=== PATIENT | male | born 1960 | race Caucasian/White ===

== ENCOUNTER → 2020-02-11 | Outpatient (CLI) | payer BC ==
--- NOTE | 2020-02-11 08:10 | CT ---
EXAMINATION TYPE: CT chest w con DATE OF EXAM: 02/11/2020 COMPARISON: Patient's abnormal chest x-ray is not available for correlation. HISTORY: 59 year-old male abnormal CXR, hilar adenopathy TECHNIQUE: Contiguous axial scanning of the chest after the administration of 100 mL of Isovue 300. Coronal/sagittal reconstructions performed. CT DLP: 479mGycm. Automatic exposure control utilized for a dose reduction. FINDINGS: Heart upper limits of normal in size without pericardial effusion. Some scattered, RCA, and LAD coron [place] artery calcifications. Mildly aneurysmal aortic root at 4.0 cm. Ascending aorta aneurysmal 4.6 cm. Conventional branching an atomy. Ectatic upper descending thoracic aorta at 3.1 cm. No thoracic lymphadenopathy by CT size criteria. No abnormal enlargement of the main right or left pu lmonary arteries. Strandy and hazy areas of atelectasis in the lower lungs. No consolidation or pleural effusion. Visualized upper abdomen shows fullness in the region of the left renal collecting system, either mil d hydronephrosis or underlying parapelvic cysts. Bones: Cervical spondylosis. Anterior endplate spondylosis lower thoracic spine. IMPRESSION: 1. No abnormal thoracic lymphadenopathy. 2. Mildly aneurysmal aortic root at 4.0 cm and additional aneurysm of the ascending aorta at 4.6 cm. 3. Some scattered areas of atelectasis in the lower lungs without acute pulmonary process otherwise s een. 4. Fullness in the region of the left renal collecting system, partially visualized. Either mild hydr onephrosis or underlying parapelvic cysts. Clinically correlate.
== END | disposition home or self-care (01) ==
LOC: RADCTMAIN 07:33
DX: I71.2 Thoracic aortic aneurysm, without rupture (principal); J98.11 Atelectasis
CPT/HCPCS: 71260; Q9967

== ENCOUNTER 2020-02-25 09:28 | Day surgery (SDC) | payer BC ==
[2020-02-21 17:08] VITALS: BMI 31.1
[~2020-02-25 09:28] MED LIST: LACTATED RINGERS 1,000 ML IV SCH
[2020-02-25 09:52] VITALS: TEMP 98.4
[2020-02-25] MEDS ORDERED: PROPOFOL 10 MG/ML 20 ML VIAL IV ONE (10:20)
[2020-02-25] MEDS ORDERED: LIDOCAINE 1% INJ 10MG/ML (20 ML MDV) ONE (10:20)
--- NOTE | 2020-02-25 10:40 | P.PCN ---
Date of Procedure: 02/25/20 Description of Procedure: BRIEF HISTORY: Patient is a 59-year-old male presenting for outpatient colonoscopy for screening for malignant neoplasm of the colon. No family history of colon cancer. No change in bowel habits. No prior colonoscopy. PROCEDURE PERFORMED: Colonoscopy. PREOPERATIVE DIAGNOSIS: Screening for malignant neoplasm of the colon, no prior colonoscopy reported. ESTIMATED BLOOD LOSS: Minimal. IV sedation per Anesthesia. PROCEDURE: After informed consent was obtained, the patient, was brought into the endoscopy unit. IV sedation was administered by Anesthesia under continuous monitoring. Digital rectal examination was normal. Initially the Olympus CF-190 flexible video colonoscope was then inserted in the rectum, gradually advanced into the cecum without any difficulty. Careful examination was performed as the scope was gradually being withdrawn. Ileocecal valve and the appendiceal orifice were visualized and appeared normal. Prep was excellent. Mucosa of the cecum, ascending colon, transverse colon, descending colon, sigmoid colon, and rectum appeared normal. Multiple small and large mouth diverticula in the sigmoid colon. Retroflexion was performed in the rectum and no lesions were seen, low- grade internal hemorrhoids. The patient tolerated the procedure well. IMPRESSION: Normal-appearing colon from rectum to cecum. Mild sigmoid diverticulosis. RECOMMENDATIONS: Findings of this examination were discussed with the patient and his . Okay to resume diet. Okay to resume medications. Recommend repeat colonoscopy in 10 years for screening for malignant neoplasm of the colon, or sooner if any signs or symptoms which warrant further evaluation develop.
[2020-02-25 10:48] VITALS: RESP 16
[2020-02-25 10:59] VITALS: BP 149/90; PULSE 60
== END 2020-02-25 11:17 | disposition home or self-care (01) ==
LOC: ORWHC2ENDO 09:28
PROVIDERS: ATTEND Internal Medicine
DX: Z12.11 Encounter for screening for malignant neoplasm of colon (principal); K57.30 Diverticulosis of large intestine without perforation or abscess without bleeding; K64.8 Other hemorrhoids; I10 Essential (primary) hypertension; K21.9 Gastro-esophageal reflux disease without esophagitis; Z79.899 Other long term (current) drug therapy
CPT/HCPCS: J2001; J2704; G0121

== ENCOUNTER 2020-03-27 07:46 | Day surgery (SDC) | payer BC ==
[2020-03-26 10:48] VITALS: BMI 30.5
[2020-03-27 08:05] VITALS: RESP 16; TEMP 97.2
[2020-03-27] MEDS ORDERED: LACTATED RINGERS 1,000 ML IV ONE (08:14)
[2020-03-27] MEDS ORDERED: LIDOCAINE 1% INJ 10MG/ML (20 ML MDV) ONE (08:58)
[2020-03-27] MEDS ORDERED: PROPOFOL 10 MG/ML 20 ML VIAL IV ONE (08:58)
--- NOTE | 2020-03-27 09:16 | P.PCN ---
Date of Procedure: 03/27/20 Description of Procedure: BRIEF HISTORY: Patient is a 59-year-old male presenting for outpatient esophagogastroduodenoscopy for evaluation of epigastric abdominal pain. Patient has a history of GERD on omeprazole therapy. He also reports dry cough and epigastric burning pain. Symptoms improved on PPI therapy. PROCEDURE PERFORMED: Esophagogastroduodenoscopy with biopsy. PREOPERATIVE DIAGNOSIS: Epigastric abdominal pain, GERD. ESTIMATED BLOOD LOSS: Minimal. IV sedation per anesthesia. PROCEDURE: After informed consent was obtained, the patient was brought into the endoscopy unit. IV sedation was administered by Anesthesia under continuous monitoring. Initially the Olympus GIF-190 video endoscope was inserted into the mouth. Esophagus intubated without any difficulty. It was gradually advanced into the stomach and duodenum and carefully examined. The bulb and the second part of the duodenum appeared normal, with biopsies taken to rule out celiac sprue. The scope at this time was withdrawn to the stomach, adequately insufflated with air, and upon careful examination, mucosa of the antrum, body, cardia and the fundus appeared normal, except for some mild punctate erythema in the antrum and body suggestive of mild gastritis biopsies taken. The scope was then withdrawn into the esophagus. The GE junction was located at 43 cm from the incisors and biopsied. The esophagus appeared normal. There were no erosions or ulcerations seen and the patient tolerated the procedure well. IMPRESSION: 1. Mild gastritis. 2.. Biopsies of the duodenum, antrum body and GE junction. RECOMMENDATIONS: The findings of this examination were discussed with the patient and his family. Okay to resume diet. Okay to resume medications. Continue omeprazole therapy. Await pathology from biopsies.
[2020-03-27 09:36] VITALS: BP 160/91; PULSE 53
== END 2020-03-27 10:00 | disposition home or self-care (01) ==
LOC: ORWHC2ENDO 07:46
PROVIDERS: ATTEND Internal Medicine
DX: K21.00 Gastro-esophageal reflux disease with esophagitis, without bleeding (principal); K29.70 Gastritis, unspecified, without bleeding; I10 Essential (primary) hypertension; Z79.899 Other long term (current) drug therapy; Z79.1 Long term (current) use of non-steroidal anti-inflammatories (NSAID); Z98.890 Other specified postprocedural states; Z87.19 Personal history of other diseases of the digestive system
CPT/HCPCS: 88305; 43239; J2001; J2704

== ENCOUNTER → 2020-04-17 | Outpatient (CLI) | payer BC ==
--- NOTE | 2020-04-17 18:52 | ECHOF ---
Referral Reason:Q23 bicuspid AV MEASUREMENTS -------- HEIGHT: 180.3 cm WEIGHT: 98.9 kg BP: IVSd: 1.7 cm (0.6 - 1.1) LVIDd: 4.4 cm (3.9 - 5.3) LVPWd: 1.7 cm (0.6 - 1.1) IVSs: 2.1 cm LVIDs: 2.4 cm LVPWs: 2.4 cm RVIDd: 3.9 cm (< 3.3) LAESV Index (A-L): 26.36 ml/m Ao Diam: 3.6 cm (2.0 - 3.7) AV Cusp: 2.3 cm (1.5 - 2.6) EPSS: 0.5 cm MV E Pio: 0.56 m/s MV DecT: 284 ms MV A Pio: 0.51 m/s MV E/A Ratio: 1.08 AR PHT: 566 ms RAP: 5.00 mmHg RVSP: 15.17 mmHg MV EF SLOPE: 90.27 mm/s (70 - 150) MV EXCURSION: 20.13 mm (> 18.000) FINDINGS -------- Sinus rhythm. This was a technically adequate study. The left ventricular size is normal. There is moderate concentric left ventricular hypertrophy. O verall left ventricular systolic function is normal with, an EF between 55 - 60 %. The right ventricle is moderately enlarged. Normal LA size by volume 22+/-6 ml/m2. The right atrial size is normal. Interatrial and interventricular septum intact. There is moderate aortic regurgitation. There is no evidence of aortic stenosis. Mild mitral regurgitation is present. Mild tricuspid regurgitation present. There is no evidence of pulmonary hypertension. The right v entricular systolic pressure, as measured by Doppler, is 15.17mmHg. There is no pulmonic regurgitation present. The aortic root and ascending aorta are dilated measuring up to 4 cm. IVC Not well visulized. There is no pericardial effusion. CONCLUSIONS -------- 1. The left ventricular size is normal. 2. There is moderate concentric left ventricular hypertrophy. 3. Overall left ventricular systolic function is normal with, an EF between 55 - 60 %. 4. The right ventricle is moderately enlarged. 5. There is moderate aortic regurgitation. 6. Mild mitral regurgitation is present. 7. Mild tricuspid regurgitation present. 8. The aortic root and ascending aorta are dilated measuring up to 4 cm. [employer]: Jeannie Love RDCS
== END | disposition home or self-care (01) ==
LOC: RADECHMAIN 10:41
PROVIDERS: ATTEND Surgery
DX: I08.3 Combined rheumatic disorders of mitral, aortic and tricuspid valves (principal); I77.810 Thoracic aortic ectasia; Z86.79 Personal history of other diseases of the circulatory system
CPT/HCPCS: 93306

== ENCOUNTER → 2020-08-11 | Outpatient (CLI) | payer BC ==
--- NOTE | 2020-08-11 11:13 | CT ---
EXAMINATION TYPE: CT angio chest DATE OF EXAM: 08/11/2020 10:44 AM COMPARISON: CT chest February 11, 2020 HISTORY: thoracic aneurysm CT DLP: 788.3 mGycm Automated exposure control for dose reduction was used. CONTRAST: CTA scan of the thorax is performed without and with IV Contrast, patient injected with 100 mL of Iso malik 370, aneurysm protocol. 3D reconstructed images are created on an independent workstation and re viewed.. FINDINGS: LUNGS: Elevated left hemidiaphragm redemonstrated. Lungs remain predominantly clear. No new consolida tion. No new nodules or masses. No pleural effusion or pneumothorax seen. MEDIASTINUM: Heart size remains upper limits of normal. No pericardial effusion is seen. Persistent early moderate calcification and suspected leaflet thickening at level of aortic valve. There is rede monstration of ascending aortic aneurysm up to 4.5 cm in diameter similar to prior study. Aortic root measures closer to 4.0 cm similar to prior. No aneurysm extension into the arch or descending aorta. Normal three-vessel origin without significant plaque or stenosis. No new greater than 1 cm thoracic lymph nodes. OTHER: Persistent fullness left central kidney consistent with parapelvic cysts or left-sided hydron ephrosis, former is suspected. Moderate multilevel spurring in the mid to lower thoracic spine is red emonstrated. IMPRESSION: Stable ascending aortic aneurysm up to 4.5 cm, no significant interval progression.
== END | disposition home or self-care (01) ==
LOC: RADCTMAIN 09:27
PROVIDERS: ATTEND Surgery
DX: I71.2 Thoracic aortic aneurysm, without rupture (principal)
CPT/HCPCS: 71275; Q9967

== ENCOUNTER → 2021-08-10 | Outpatient (CLI) | payer BC ==
--- NOTE | 2021-08-10 13:46 | CT ---
EXAMINATION TYPE: CT angio chest DATE OF EXAM: 08/10/2021 1:37 PM COMPARISON: 08/11/2020 HISTORY: Thoracic Aortic Aneurysm CT DLP: 837.20 mGycm Automated exposure control for dose reduction was used. CONTRAST: CTA scan of the thorax is performed without and with IV Contrast, patient injected with 100 mL of Iso malik 370, pulmonary embolism protocol. . FINDINGS: LUNGS: The lungs are grossly clear, there is no concerning parenchymal mass or nodule identified. T here is no pleural effusion or pneumothorax seen. The tracheobronchial tree is patent. MEDIASTINUM: Heart size mildly enlarged and there is coronary artery calcifications. No pericardial e ffusion is seen. Persistent early moderate calcification and suspected leaflet thickening at level of aortic valve. There is redemonstration of ascending aortic aneurysm up to 4.6 cm in diameter similar to prior study measured 4.5 cm. Normal three-vessel origin without significant plaque or stenosis. No new greater than 1 cm thoracic lymph nodes. Subsegmental changes involving the lungs most likely in the basis of atelectasis. OTHER: Persistent fullness left central kidney consistent with parapelvic cysts or left-sided hydron ephrosis, former is suspected. Moderate multilevel spurring in the mid to lower thoracic spine is red emonstrated. IMPRESSION: 1. Thoracic ascending aortic aneurysm measuring approximately 4.6 cm and previously measuring 4.5 cm in greatest dimension. 2. Cardiomegaly with coronary artery atherosclerosis, correlate clinically.
[2021-08-10 13:56] LABS: African American GFR (CKD) >90 (>60 ml/min/1.73 sqM); Blood Urea Nitrogen 22 mg/dL (9-20); Non-African American GFR(CKD) >90 (>60 ml/min/1.73 sqM)
== END | disposition home or self-care (01) ==
LOC: RADCTMAIN 08:29
PROVIDERS: ATTEND Surgery
DX: I71.2 Thoracic aortic aneurysm, without rupture (principal); I25.10 Atherosclerotic heart disease of native coronary artery without angina pectoris; I51.7 Cardiomegaly
CPT/HCPCS: 82565; 84520; 71275; 36415; Q9967

== ENCOUNTER → 2021-08-31 | Outpatient (CLI) | payer BC ==
[2021-08-31 22:45] LABS: African American GFR (CKD) 95.7 (60.0-200.0); Anion Gap 10.8 mmol/L (10.00-18.00); Carbon Dioxide 22.2 mmol/L (20.0-27.5); Non-African American GFR(CKD) 82.6 (60.0-200.0)
[2021-08-31 22:58] LABS: HCT 37.3 % (39.6-50.0); HGB 12.8 g/dL (13.0-17.0); MCH 31.6 pg (27.0-32.0); MCHC 34.3 g/dL (32.0-37.0); MCV 92.1 fL (80.0-97.0); NRBC Per 100 WBC 0 /100 WBCS (0.0-0.0); Platelet Count 149 X 10*3/uL (140-440); RBC 4.05 X 10*6/uL (4.40-5.60); RDW 12.4 % (11.5-14.5); WBC 3.81 X 10*3/uL (4.50-10.00)
== END | disposition home or self-care (01) ==
LOC: LABPAT 15:55
PROVIDERS: ATTEND Internal Medicine
DX: Z01.812 Encounter for preprocedural laboratory examination (principal); I34.0 Nonrheumatic mitral (valve) insufficiency
CPT/HCPCS: 36415; 80051; 82565; 84520; 85027

== ENCOUNTER 2021-09-07 06:19 | Day surgery (SDC) | payer BC ==
[~2021-09-07 06:19] MED LIST changes: +ALPRAZolam 0.25 MG TAB PO PRN; +ALPRAZolam 0.5 MG TAB PO PRN; +ASPIRIN 325 MG TAB PO STA; +ATORVASTATIN 80 MG TAB PO STA; +HEPARIN SODIUM,PORCINE 10,000 UNIT in SODIUM CHLORIDE 0.9% 1,000 ML IRRIGATION PRN; +HEPARIN SODIUM,PORCINE 2,500 UNIT in SODIUM CHLORIDE 0.9% 250 ML IRRIGATION PRN; -LACTATED RINGERS 1,000 ML IV SCH; +NITROGLYCERIN SL TABS 0.4 MG TAB SUBLINGUAL PRN; +SODIUM CHLORIDE 0.9% 1,000 ML in EMPTY BAG 1 BAG IV SCH
[2021-09-07 06:59] VITALS: RESP 16; TEMP 98.8
[2021-09-07] MEDS ORDERED: fentaNYL (PF) 50 MCG/ML 2 ML AMP ONE (07:17)
[2021-09-07] MEDS ORDERED: BENZOCAINE SPRAY 1 CAN MUCOUS MEM ONE (07:32)
[2021-09-07] MEDS ORDERED: fentaNYL (PF) 50 MCG/ML 2 ML AMP IV ONE ×2 (07:35→07:39)
[2021-09-07] MEDS ORDERED: MIDAZOLAM 2 MG/2 ML VIAL IV ONE ×3 (07:35→07:41)
[2021-09-07] MEDS ORDERED: IV FLUID CONTINUATION 700 ML IV ONE (08:05)
[2021-09-07] MEDS: LIDOCAINE 1% INJ 10MG/ML (5 ML VIAL-PF) SQ ONE ×2 (08:12→08:20)
[2021-09-07] MEDS ORDERED: LIDOCAINE 1% INJ 10MG/ML (5 ML VIAL-PF) SQ ONE (08:12)
[2021-09-07] MEDS ORDERED: HEPARIN SODIUM 1,000 UN/ML (10ML VL) ONE (08:31)
[2021-09-07] MEDS ORDERED: HEPARIN SODIUM 1,000 UN/ML (10ML VL) IVP ONE (08:32)
[2021-09-07] MEDS ORDERED: IOPAMIDOL-370 100ML BTL INJ ONE (08:42)
[2021-09-07] MEDS ORDERED: IOPAMIDOL-370 125ML BTL INJ ONE (08:48)
[2021-09-07 08:49] LABS: O2 Sat Blood Gas 73.3 %
[2021-09-07 08:50] LABS: O2 Sat Blood Gas 71.6 %
[2021-09-07 08:50] LABS: O2 Sat Blood Gas 96.8 %
--- NOTE | 2021-09-07 09:02 | P.TEE ---
Description of Procedure(s): Procedure performed: Transesophageal Echocardiogram with color flow doppler, pulsed wave doppler and continuous wave doppler, moderate conscious sedation Moderate conscious sedation: Moderate conscious sedation was supplied with direct supervision of myself using Versed and Fentanyl. Complications: none Indications: Moderate to severe aortic insufficiency PROCEDURE: After the risks, benefits and alternatives of the above mentioned procedure was explained in detail with the patient, informed consent was obtained. Patient was brought to the lab in a fasting state. Patient was given IV Versed and Fentanyl for sedation. The throat was sprayed with Hurricane to anesthetize the throat. A lubricated Omni probe was then introduced into the esophagus and stomach and multiple views were obtained. 2D echo with color flow doppler, pulsed wave doppler and continuous wave doppler was utilized. Agitated saline bubbles were injected to assess for any intra-atrial shunt. The probe was then removed. Patient tolerated the procedure well. Patient was transferred to the post procedure area in stable and satisfactory condition. FINDINGS: 1. The aortic valve is bicuspid with mild aortic sclerosis and mild aortic stenosis. There is moderate to severe aortic insufficiency. There is only early diastolic flow reversal noted in the descending, no holosystolic flow reversal noted more consistent with moderate aortic insufficiency. 2. The mitral valve appears be normal with mild mitral regurgitation. 3. Tricuspid valve appears to be normal with trace tricuspid regurgitation. 4. The interatrial septum is intact. No evidence of PFO. 5. Left atrial appendage is free of clot. 6. Left ventricular size and function is normal with left ventricular ejection fraction 55-60%. 7. The ascending aortic root is dilated measuring 4.4 cm.
[2021-09-07 12:39] VITALS: BP 142/78
[2021-09-07 13:02] VITALS: PULSE 55
--- NOTE | 2021-09-07 22:04 | P.CARDCATH ---
Description of Procedure: PROCEDURES PERFORMED: Left heart catheterization, bilateral coronary angiography, right heart catheterization, aortogram INDICATION: Moderate to severe aortic insufficiency CONSENT:I have discussed the risks, benefits and alternative therapies for the above-mentioned procedure and for both sedation/analgesia as well as necessary blood product administration, if indicated, as they pertain to this patient. The patient has indicated understanding and acceptance of the risks and procedures discussed. PROCEDURE: After the risks, benefits and alternatives of the above mentioned procedure explained in detail with the patient, informed consent was obtained. Patient was taken to the catheterization lab and prepped and draped in usual fashion. 1% lidocaine was used to anesthetize the right radial artery. A 6- [place] sheath was placed in the right radial artery using modified Seldinger technique. A peripheral 18G IV had previously been placed in the right brachial vein and this was exchanged for a 6Fr sheath. A 6Fr Morris Nawaf catheter was advanced into the RA, RV, PA and PCWP positions and pressure measurements and pulse oxygen saturations were obtained for JOSE calculation. Thermodilution was performed. The Morris Nawaf catheter was removed. Left coronary angiography was performed with a 5-Icelandic JL 4.0 catheter and right coronary angiography was performed with a 6-Icelandic AR2 catheter in various views. The AR2 catheter was inserted into the left ventricle and pressure measurements were obtained. There was no signficant gradient with pullback across the aortic valve. An aortic root aortogram was performed in the HAYES projection with power injection. The right radial sheath was removed and a TR band was placed with hemostasis achieved. The right brachial sheath was removed and pressure was held. The patient tolerated the procedure well. Patient was transported back to the post catheterization holding area in stable condition. Conscious Sedation: Patient was monitored under the direct supervision of vision of myself for conscious sedation using Versed and fentanyl for a total duration of 31 minutes RIGHT HEART CATHETERIZATION: Aorta: 117/65 LV: 118/6, LVEDP 13 RA: 6 RV: 30/1 RVEDP:8 PA: 30/10 PCWP: 11 PA oxygen sat: 73% RA oxygen sat: 72% Right radial oxygen sat: 97% CO by JOSE: 3.6 L/min CI by JOSE: 3.3 L/min/m2 CO by thermodilution: 8.5 CI by thermodilution: 7.8 AORTOGRAM: There is dilation of the ascending aortic root. There is 2-3+ aortic insufficiency. SELECTIVE CORONARY ARTERIOGRAPHY: LEFT MAIN: The left main is a large caliber vessel which bifurcates into the LAD and circumflex. There is no significant stenosis. LEFT ANTERIOR DESCENDING CORONARY ARTERY: LAD is a large caliber vessel which wraps around to the apex. There are mild luminal irregularities of the LAD. LEFT CIRCUMFLEX CORONARY ARTERY: Left circumflex is a moderate caliber vessel. There is a mid circumflex 30% stenosis. RIGHT CORONARY ARTERY: The right coronary artery is a large caliber vessel which gives off a PDA and PLV branch and is the dominant vessel. There are mild luminal irregularities. FINAL IMPRESSION: 1. Mild CAD as described above including 30% mid circumflex disease 2. Normal left and right sided filling pressures 3. 2-3+ moderate aortic insufficiency 4. Normal cardiac output 5. Aortic root dilation PLAN: 1. Aggressive risk factor modification per most recent ACC/AHA guidelines. 2. Continue with medical therapy.
== END 2021-09-07 13:02 | disposition home or self-care (01) ==
LOC: CATHCVL 06:19
PROVIDERS: ATTEND Internal Medicine
DX: I08.0 Rheumatic disorders of both mitral and aortic valves (principal); I25.10 Atherosclerotic heart disease of native coronary artery without angina pectoris; I10 Essential (primary) hypertension; I71.2 Thoracic aortic aneurysm, without rupture; K21.9 Gastro-esophageal reflux disease without esophagitis; Z79.899 Other long term (current) drug therapy; Z20.822 Contact with and (suspected) exposure to COVID-19
CPT/HCPCS: 93312; 93320; 93325; 93460; 85018; 82810; 87635; C1894; C1751; C1769; J2250; J2001; J3010; J1644; Q9967 ×2

== ENCOUNTER → 2022-01-07 | Outpatient (CLI) | payer BC ==
[2022-01-07 14:32] LABS: Basophils # (A) 0.02 X 10*3/uL (0.00-0.10); Basophils % (A) 0.4 %; Eosinophils # (A) 0.08 X 10*3/uL (0.04-0.35); Eosinophils % (A) 1.6 %; HCT 41.1 % (39.6-50.0); HGB 14.2 g/dL (13.0-17.0); Immature Grans, Automated 0.4 %; Lymphocytes # (A) 1.08 X 10*3/uL (0.90-5.00); Lymphocytes % (A) 21.6 %; MCH 30.9 pg (27.0-32.0); MCHC 34.5 g/dL (32.0-37.0); MCV 89.3 fL (80.0-97.0); Mean Platelet Volume 9.2 fL (9.5-12.2); Monocytes # (A) 0.42 X 10*3/uL (0.20-1.00); Monocytes % (A) 8.4 %; NRBC Per 100 WBC 0 /100 WBCS (0.0-0.0); Neutrophils # (A) 3.37 X 10*3/uL (1.80-7.70); Neutrophils % (A) 67.6 %; Platelet Count 155 X 10*3/uL (140-440); RDW 12.4 % (11.5-14.5); WBC 4.99 X 10*3/uL (4.50-10.00)
[2022-01-07 16:13] LABS: ALT 16 U/L (10-49); AST 16 U/L (14-35)
[2022-01-07 16:29] LABS: Hepatitis B Surface AB- Quant 3.5 mIU/mL; Hepatitis B Surface Antibody Nonreactive (Nonreactive)
[2022-01-07 16:39] LABS: Hepatitis B Surface Antigen Nonreactive (Nonreactive); Hepatitis C IgG Antibody Nonreactive (Nonreactive)
== END | disposition home or self-care (01) ==
LOC: LABWHC1 10:13
PROVIDERS: ATTEND Student in an Organized Health Care Education/Training Program
DX: L30.8 Other specified dermatitis (principal); L53.8 Other specified erythematous conditions
CPT/HCPCS: 36415; 84450; 84460; 85025; 86225; 86235; 86480; 86704; 86706; 86803; 87340

== ENCOUNTER → 2022-04-23 | Outpatient (CLI) | payer BC ==
[2022-04-23 17:45] LABS: Basophils # (A) 0.03 X 10*3/uL (0.00-0.10); Basophils % (A) 0.8 %; Eosinophils % (A) 2.6 %; HCT 42.5 % (39.6-50.0); HGB 14.5 g/dL (13.0-17.0); Immature Grans, Automated 0.3 %; Lymphocytes # (A) 0.75 X 10*3/uL (0.90-5.00); Lymphocytes % (A) 19.1 %; MCH 31.3 pg (27.0-32.0); MCHC 34.1 g/dL (32.0-37.0); MCV 91.6 fL (80.0-97.0); Mean Platelet Volume 9.6 fL (9.5-12.2); Monocytes % (A) 10.2 %; NRBC Per 100 WBC 0 /100 WBCS (0.0-0.0); Neutrophils # (A) 2.63 X 10*3/uL (1.80-7.70); Platelet Count 154 X 10*3/uL (140-440); RBC 4.64 X 10*6/uL (4.40-5.60); RDW 12.9 % (11.5-14.5); WBC 3.92 X 10*3/uL (4.50-10.00)
[2022-04-23 18:02] LABS: ALT 22 U/L (10-49); AST 19 U/L (14-35); African American GFR (CKD) 95.1 (60.0-200.0); Albumin 4.7 g/dL (3.8-4.9); Albumin/Globulin Ratio 2.61 (1.60-3.17); Alkaline Phosphatase 85 U/L (41-126); Calcium 9.4 mg/dL (8.7-10.3); Carbon Dioxide 24.3 mmol/L (20.0-27.5); Chloride 105 mmol/L (96-109); Chol/HDL Ratio 5.62 Ratio; Globulin 1.8 g/dL (1.6-3.3); Glucose 113 mg/dL (70-110); LDL Cholesterol,Calculated 164.2 mg/dL (0.0-131.0); Potassium 4.3 mmol/L (3.5-5.5); Sodium 141 mmol/L (135-145); Total Protein 6.5 g/dL (6.2-8.2)
== END | disposition home or self-care (01) ==
LOC: LABWHC1 09:46
PROVIDERS: ATTEND Family Medicine
DX: Z00.00 Encounter for general adult medical examination without abnormal findings (principal); Z12.5 Encounter for screening for malignant neoplasm of prostate; I42.9 Cardiomyopathy, unspecified
CPT/HCPCS: 36415; 80053; 80061; 83036; 83880; 84153; 84443; 85025

== ENCOUNTER → 2022-08-16 | Outpatient (CLI) | payer BC ==
--- NOTE | 2022-08-16 08:22 | CT ---
EXAMINATION TYPE: CT chest wo con CT DLP: 696 mGycm, Automated exposure control for dose reduction was used. DATE OF EXAM: 08/16/2022 6:53 AM COMPARISON: CTA chest 08/10/2021, 08/11/2020, CT chest 02/11/2020. CLINICAL INDICATION:Male, 61 years old with history of I71.20; PHH, Thoracic aortic aneurysm, without rupture TECHNIQUE: Multiple axial images were obtained through the chest without IV contrast. Lack of IV or o ral contrast limits evaluation of solid and hollow organ viscera. FINDINGS: Evaluation is limited due to lack of intravenous contrast. LUNGS/ PLEURA: The lung parenchyma appears unremarkable. AIRWAY: Patent and unremarkable.. HEART: Size within normal limits. No pericardial effusion. Mild coronary artery calcifications. Calci fication of the aortic valve. MEDIASTINUM: No gross evidence of adenopathy. VASCULATURE: Increased size of ascending thoracic aortic aneurysm measuring up to 4.7 cm, previously measured up to 4.6 cm when measuring with similar technique. MUSCULOSKELETAL: No acute osseous abnormalities. Multilevel Schmorl's nodes. SOFT TISSUES/LYMPH NODES: Unremarkable. LOWER NECK: No significant findings. UPPER ABDOMEN: 2 mm left renal calculus. Similar persistent fullness of the left central kidney. IMPRESSION: 1. Thoracic ascending aortic aneurysm redemonstrated measuring approximate 4.7 cm, previously 4.6 cm when measuring with similar technique. 2. Similar persistent fullness of the left central kidney with a 2 mm calculus. This could be seen wi th parapelvic cysts or left-sided hydronephrosis. Consider further evaluation with renal ultrasound a s clinically indicated.
== END | disposition home or self-care (01) ==
LOC: RADCTMAIN 06:28
PROVIDERS: ATTEND Surgery
DX: I71.21 Aneurysm of the ascending aorta, without rupture (principal); N20.0 Calculus of kidney
CPT/HCPCS: 71250

== ENCOUNTER 2022-08-19 02:56 | Emergency (ER) | payer BC ==
[2022-08-19] MEDS ORDERED: ONDANSETRON 4 MG/2 ML VIAL IVP STA (03:10)
[2022-08-19] MEDS ORDERED: MORPHINE SULFATE 4 MG/ML SYRINGE IV STA (03:10)
[2022-08-19] MEDS ORDERED: SODIUM CHLORIDE 0.9% 1,000 ML IV STA (03:10)
--- NOTE | 2022-08-19 03:19 | ED ---
General Adult HPI - General Chief complaint: Abdominal Pain Stated complaint: Back pain, Abd Pain Time Seen by Provider: 08/19/22 03:06 Source: patient, family Mode of arrival: ambulatory Limitations: no limitations - History of Present Illness Initial comments: Dictation was produced using [employer] dictation software. please excuse any grammatical, word or spelling errors. Chief Complaint: 61-year-old male with past medical history of thoracic aortic aneurysm presents to the ER for flank pain History of Present Illness: Patient's 61-year-old male presents with left-sided flank pain. Patient states he went to bed in his usual state of health. He woke up with severe pain. Associated nausea. No vomiting. No history of kidney stones. Patient denies any abdominal pain states that the pain radiates to his bilateral groins. He did urinate prior to being placed in the room and his urine was cola color. States that because he had some pop last night. She states that the pain is severe and is colicky The ROS documented in this emergency department record has been reviewed and confirmed by me. Those systems with pertinent positive or negative responses have been documented in the HPI. All other systems are other negative and/or noncontributory. - Related Data Home Medications Medication Instructions Recorded Confirmed Omeprazole [PriLOSEC] 40 mg PO DAILY 02/21/20 09/07/21 Acetaminophen [Tylenol] 325 mg PO Q4H 09/03/21 09/07/21 Labetalol HCl [Trandate] 300 mg PO BID 09/03/21 09/07/21 Aspirin [Adult Low Dose Aspirin EC] 81 mg PO DIRECTED PRN 09/07/21 09/07/21 Allergies Allergy/AdvReac Type Severity Reaction Status Date / Time No Known Allergies Allergy Verified 08/19/22 03:03 Review of Systems ROS Statement: Those systems with pertinent positive or pertinent negative responses have been documented in the HPI. ROS Other: All systems not noted in ROS Statement are negative. Past Medical History Past Medical History: GERD/Reflux, Hypertension History of Any Multi-Drug Resistant Organisms: None Reported Past Surgical History: Back Surgery, Hernia Repair Additional Past Surgical History / Comment(s): Back surg 2007. COLONOSCOPY Past Anesthesia/Blood Transfusion Reactions: No Reported Reaction Past Psychological History: No Psychological Hx Reported Smoking Status: Never smoker Past Alcohol Use History: None Reported Past Drug Use History: None Reported - Past Family History Brother(s) Family Medical History: Cancer Additional Family Medical History / Comment(s): 1 with lymphoma; 1 with brain cancer Father Family Medical History: Hypertension General Exam - General Exam Comments Initial Comments: PHYSICAL EXAM: General Impression: Alert and oriented x3, acute distress in pain HEENT: Normocephalic atraumatic, extra-ocular movements intact, pupils equal and reactive to light bilaterally, mucous membranes moist. Cardiovascular: Heart regular rate and rhythm Chest: Able to complete full sentences, no retractions, no tachypnea Abdomen: abdomen soft, non-tender, non-distended, no organomegaly Musculoskeletal: Pulses present and equal in all extremities, no peripheral edema Motor: no focal deficits noted Neurological: CN II-XII grossly intact, no focal motor or sensory deficits noted Skin: Intact with no visualized rashes Psych: Normal affect and mood Limitations: no limitations Course Vital Signs 08/19/22 08/19/22 03:01 05:33 Temperature 98.2 F 98.1 F Pulse Rate 61 65 Respiratory 18 16 Rate Blood Pressure 92/45 175/97 O2 Sat by Pulse 98 97 Oximetry Medical Decision Making - Medical Decision Making Was pt. sent in by a medical professional or institution (, PA, DECK OFFICER, urgent care, hospital, or intermediate...) When possible be specific @ -No Did you speak to anyone other than the patient for history (EMS, parent, family, police, friend...)? What history was obtained from this source @ -No Did you review nursing and triage notes (agree or disagree)? Why? @ -I reviewed and agree with nursing and triage notes Were old charts reviewed (outside hosp., previous admission, EMS record, old EKG, old radiological studies, urgent care reports/EKG's, intermediate records)? Report findings @ -No old charts were reviewed Differential Diagnosis (chest pain, altered mental status, abdominal pain women, abdominal pain men, vaginal bleeding, musculoskeletal, weakness, fever, dyspnea, syncope, headache, dizziness, GI bleed, back pain, seizure, CVA, palpatations, mental health)? @ -Differential Abdominal Pain Men: Appendicitis, cholecystitis, diverticulosis, ischemic bowel, pancreatitis, hepatitis, UTI, gastroenteritis, AAA, incarcerated hernia, bowel obstruction, constipation, inflammatory bowel, hepatitis, peptic ulcer disease, splenic infarction, perforated viscus, testicular torsion, this is not meant to be an all-inclusive list EKG interpreted by me (3pts min.). @ -None done X-rays interpreted by me (1pt min.). @ -None done CT interpreted by me (1pt min.). @ -Left distal ureteral 3 mm kidney stone with signs of obstruction U/S interpreted by me (1pt. min.). @ -None done What testing was considered but not performed or refused? (CT, X-rays, U/S, labs)? Why? @ -None What meds were considered but not given or refused? Why? @ -None Did you discuss the management of the patient with other professionals (professionals i.e. , PA, DECK OFFICER, lab, RT, psych nurse, director social, cigarette tipper, teacher, supervisory cbp officer, manager rn case)? Give summary @ -No Was smoking cessation discussed for >3mins.? @ -No Was critical care preformed (if so, how long)? @ -No Were there social determinants of health that impacted care today? How? (Homelessness, low income, unemployed, alcoholism, drug addiction, transportation, low edu. Level, literacy, decrease access to med. care, group home, rehab)? @ -No Was there de-escalation of care discussed even if they declined (Discuss DNR or withdrawal of care, Hospice)? DNR status @ -No What co-morbidities impacted this encounter? (DM, HTN, Smoking, COPD, CAD, Cancer, CVA, ARF, Chemo, Hep., AIDS, mental health diagnosis, sleep apnea, morbid obesity)? @ -None Was patient admitted / discharged? Hospital course, mention meds given and route, prescriptions, significant lab abnormalities, going to OR and other pertinent info. @ -61-year-old male presents emergency department for left-sided flank pain. Vital signs stable. Computed tomography scan without contrast shows a 3 mm distal left ureteral stone. Blood work is unremarkable. Urinalysis shows greater than 182 red blood cells. Patient monitored in emergency department. Reevaluated at 5:55 AM states that his symptoms are almost completely resolved. Clinically, patient likely passed a stone. Undiagnosed new problem with uncertain prognosis? @ -No Drug Therapy requiring intensive monitoring for toxicity (Heparin, Nitro, Insulin, Cardizem)? @ -No Were any procedures done? @ -No Diagnosis/symptom? Acute, or Chronic, or Acute on Chronic? Uncomplicated (without systemic symptoms) or Complicated (systemic symptoms)? @ -1. Obstructing Nephrolithiasis Side effects of treatment? @ -No Exacerbation, Progression, or Severe Exacerbation? @ -No Poses a threat to life or bodily function? How? (Chest pain, [place], [place], pneumonia, PE, COPD, DKA, ARF, appy, cholecystitis, CVA, Diverticulitis, Homicidal, Suic idal, threat to staff... and all critical care pts) @ -yes - Lab Data Result diagrams: 08/19/22 03:40 08/19/22 03:40 Lab Results 08/19/22 08/19/22 08/19/22 Range/Units 03:40 03:40 03:40 WBC 5.6 (3.8-10.6) k/uL RBC 4.50 (4.30-5.90) m/uL Hgb 14.1 (13.0-17.5) gm/dL Hct 40.1 (39.0-53.0) % MCV 89.1 (80.0-100.0) fL MCH 31.4 (25.0-35.0) pg MCHC 35.2 (31.0-37.0) g/dL RDW 13.1 (11.5-15.5) % Plt Count 122 L (150-450) k/uL MPV 7.7 Neutrophils % 76 % Lymphocytes % 14 % Monocytes % 5 % Eosinophils % 2 % Basophils % 0 % Neutrophils # 4.2 (1.3-7.7) k/uL Lymphocytes # 0.8 L (1.0-4.8) k/uL Monocytes # 0.3 (0-1.0) k/uL Eosinophils # 0.1 (0-0.7) k/uL Basophils # 0.0 (0-0.2) k/uL Sodium 139 (137-145) mmol/L Potassium 4.0 (3.5-5.1) mmol/L Chloride 105 (98-107) mmol/L Carbon Dioxide 22 (22-30) mmol/L Anion Gap 12 mmol/L BUN 19 (9-20) mg/dL Creatinine 0.83 (0.66-1.25) mg/dL Est GFR (CKD-EPI)AfAm >90 (>60 ml/min/1.73 sqM) Est GFR (CKD-EPI)NonAf >90 (>60 ml/min/1.73 sqM) Glucose 161 H (74-99) mg/dL Calcium 8.9 (8.4-10.2) mg/dL Total Bilirubin 0.8 (0.2-1.3) mg/dL AST 28 (17-59) U/L ALT 28 (4-49) U/L Alkaline Phosphatase 84 (38-126) U/L Total Protein 6.6 (6.3-8.2) g/dL Albumin 4.3 (3.5-5.0) g/dL Urine Color Light Red Urine Appearance Cloudy (Clear) Urine pH 5.5 (5.0-8.0) Ur Specific Ponce 1.025 (1.001-1.035) Urine Protein 1+ H (Negative) Urine Glucose (UA) Negative (Negative) Urine Ketones Negative (Negative) Urine Blood Large H (Negative) Urine Nitrite Negative (Negative) Urine Bilirubin Negative (Negative) Urine Urobilinogen <2.0 (<2.0) mg/dL Ur Leukocyte Esterase Negative (Negative) Urine RBC >182 H (0-5) /hpf Urine WBC 7 H (0-5) /hpf Urine Mucus Occasional H (None) /hpf Disposition Clinical Impression: Kidney stone Disposition: HOME SELF-CARE Condition: Good Instructions (If sedation given, give patient instructions): Kidney Stones (ED) Is patient prescribed a controlled substance at d/c from ED?: No Referrals: Sean Tejeda MD [Primary Care Provider] - 1-2 days Time of Disposition: 05:56
[2022-08-19] MEDS ORDERED: HYDROmorphone 1 MG/ML 1 ML SYRINGE IVP STA (04:05)
[2022-08-19 04:06] LABS: ALT 28 U/L (4-49); AST 28 U/L (17-59); African American GFR (CKD) >90 (>60 ml/min/1.73 sqM); Albumin 4.3 g/dL (3.5-5.0); Alkaline Phosphatase 84 U/L (38-126); Anion Gap 12 mmol/L; Blood Urea Nitrogen 19 mg/dL (9-20); Calcium 8.9 mg/dL (8.4-10.2); Carbon Dioxide 22 mmol/L (22-30); Chloride 105 mmol/L (98-107); Glucose 161 mg/dL (74-99); Non-African American GFR(CKD) >90 (>60 ml/min/1.73 sqM); Sodium 139 mmol/L (137-145); Total Bilirubin 0.8 mg/dL (0.2-1.3); Total Protein 6.6 g/dL (6.3-8.2)
[2022-08-19 04:23] LABS: Appearance,Urine Cloudy (Clear); Color,Urine Light Red; Glucose,Urine (UA) Negative (Negative); PH, Urine 5.5 (5.0-8.0); Protein,Urine 1+ (Negative); Specific Gravity,Urine 1.025 (1.001-1.035)
[2022-08-19 04:24] LABS: Bilirubin,Urine Negative (Negative); Blood,Urine Large (Negative); Ketones,Urine Negative (Negative); Leukocyte Esterase,Urine Negative (Negative); Mucus,Urine Occasional /hpf; Nitrite,Urine Negative (Negative); RBC,Urine >182 /hpf (0-5); Urobilinogen,Urine <2.0 mg/dL (<2.0); WBC,Urine 7 /hpf (0-5)
[2022-08-19 04:42] LABS: Basophils % (A) 0 %; Eosinophils # (A) 0.1 k/uL (0-0.7); Eosinophils % (A) 2 %; HCT 40.1 % (39.0-53.0); HGB 14.1 gm/dL (13.0-17.5); Lymphocytes # (A) 0.8 k/uL (1.0-4.8); Lymphocytes % (A) 14 %; MCH 31.4 pg (25.0-35.0); MCHC 35.2 g/dL (31.0-37.0); MCV 89.1 fL (80.0-100.0); Mean Platelet Volume 7.7; Monocytes # (A) 0.3 k/uL (0-1.0); Monocytes % (A) 5 %; Neutrophils # (A) 4.2 k/uL (1.3-7.7); Neutrophils % (A) 76 %; Platelet Count 122 k/uL (150-450); RDW 13.1 % (11.5-15.5); WBC 5.6 k/uL (3.8-10.6)
--- NOTE | 2022-08-19 05:10 | CT ---
EXAMINATION TYPE: CT abdomen pelvis wo con DATE OF EXAM: 08/19/2022 HISTORY: Left flank pain CT DLP: 899.5 mGycm. Automated Exposure Control for Dose Reduction was Utilized. TECHNIQUE: CT scan of the abdomen and pelvis is performed without oral or IV contrast. COMPARISON: NONE FINDINGS: Within the limitations of a non-contrast study, the following observations are made. LUNG BASES: Elevated left hemidiaphragm. Calcification of the aortic valve.. LIVER/GB: No significant abnormality is appreciated. PANCREAS: No significant abnormality is seen. SPLEEN: No significant abnormality is seen. ADRENALS: No significant abnormality is seen. KIDNEYS: Central parapelvic cysts bilaterally are larger and the left kidney versus right kidney. No nephrolithiasis bilaterally. Slight asymmetric left renal enlargement. Mild to moderate left-sided pe rinephric fluid is nonspecific finding. There is 3 mm distal left ureteral calculus axial image 141 c ausing asymmetric mild left-sided hydronephrosis. No obstructing right ureteral calculi. No intralumi nal calculi in the bladder. BOWEL: Sigmoid colonic diverticulosis. No CT evidence for acute diverticulitis. GENITAL ORGANS: No gross abnormality seen. LYMPH NODES: No greater than 1cm abdominal or pelvic lymph nodes are appreciated. OSSEOUS STRUCTURES: Straightening of the lumbar spine with multilevel spurring and disc space narrowi ng and multilevel vacuum disc phenomenon. Most Prominent disc space narrowing is at L2-L3 and L4-L5 l evels. OTHER: Small fat-containing bilateral inguinal hernias. IMPRESSION: Tear is 3 mm distal left ureter causing mild left-sided hydronephrosis.
[2022-08-19] MEDS ORDERED: KETOROLAC 15 MG/ML 1 ML VIAL IVP STA (05:19)
[2022-08-19 06:08] VITALS: BP 160/88; PULSE 69; RESP 18; TEMP 98.2
== END 2022-08-19 06:11 | disposition home or self-care (01) ==
LOC: EC 02:56
DX: N13.2 Hydronephrosis with renal and ureteral calculous obstruction (principal); I10 Essential (primary) hypertension; K21.9 Gastro-esophageal reflux disease without esophagitis; Z79.82 Long term (current) use of aspirin; Z79.899 Other long term (current) drug therapy
CPT/HCPCS: 36415; 80053; 85025; 81001; 74176; 99284; 96374; 96375; 96361; J2270; J2405; J1170; J1885

== ENCOUNTER → 2023-08-26 | Outpatient (CLI) | payer BC ==
--- NOTE | 2023-08-26 11:26 | CT ---
EXAMINATION TYPE: CT angio chest CT DLP: A 51 mGycm, Automated exposure control for dose reduction was used. DATE OF EXAM: 08/26/2023 10:54 AM COMPARISON: 08/16/2022 CLINICAL INDICATION:Male, 62 years old with history of I71.20 THORACIC AORTIC ANEURYSM, WITHOUT RUPTU RE,; TECHNIQUE/CONTRAST: CTA scan of the thorax is performed with IV Contrast, patient injected with 100 mL of Isovue 370, MIP images are created and reviewed these are created on a separate workstation.. FINDINGS: Lungs/Pleura: No evidence of focal consolidation, pleural effusion or pneumothorax. Airway: Large airways are patent. Heart: Heart is within normal limits for size. Consultations of the aortic valve are present. Vasculature: No evidence for intramural hematoma on noncontrast imaging. No evidence of intimal flap to suggest dissection. No aneurysm identified. Scattered atherosclerotic disease. Ascending thoracic aorta ectasia up to 4.5 cm. The origins of the aorta are patent. No filling defect to suggest pulmona ry embolus. Mediastinum: No gross evidence of adenopathy. Musculoskeletal: No acute osseous abnormalities Soft Tissues: Unremarkable. Lower neck: No significant findings. Upper Abdomen: Left perirenal cysts. IMPRESSION: 1. Ascending thoracic aorta ectasia up to 4.5 cm, no evidence for aortic aneurysm. 2. No evidence for acute process. 3. Mild aortic valve calcifications.
== END | disposition home or self-care (01) ==
LOC: RADCTMAIN 10:09
PROVIDERS: ATTEND Surgery
DX: I77.810 Thoracic aortic ectasia (principal); I35.8 Other nonrheumatic aortic valve disorders
CPT/HCPCS: 71275; Q9967

== ENCOUNTER → 2024-07-18 | Outpatient (CLI) | payer BC ==
--- NOTE | 2024-07-18 09:18 | US ---
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 Patient denies any other signs, symptoms, or relev ant history TECHNIQUE: Grayscale and color Doppler imaging of the bilateral neck. FINDINGS: Multiple lymph nodes noted bilateral lateral neck. Largest left neck = 2.1 x 0.7 x 1.4 cm with thickened cortex. ? Heterogenous area lateral to left submandibular gland = 2.3 x 0.7 x 1.2 cm with adjacent lymph node s. Cystic areas bilateral thyroid lobes, defined on right = 1.7 x 0.4 x 1.0 cm; Not defined on left side . IMPRESSION 1. No enlarged lymph nodes in the left neck. There is heterogenous tissue near the left submandibula r gland. Further evaluation with CT neck with IV contrast may be of better utility. 2. No thyroid nodules, thyroid cyst present which are benign [facility], , 07/18/2024 9:15 AM
== END | disposition home or self-care (01) ==
LOC: RADUSWWP 08:19
PROVIDERS: ATTEND Family Medicine
DX: K11.9 Disease of salivary gland, unspecified (principal)
CPT/HCPCS: 76536

== ENCOUNTER → 2024-09-03 | Outpatient (CLI) | payer BC ==
--- NOTE | 2024-09-03 10:12 | CT ---
EXAMINATION TYPE: CT chest w con DATE OF EXAM: 09/03/2024 7:47 AM COMPARISON: 08/26/2023 CLINICAL INDICATION: Male, 63 years old with history of I71.20 THORACIC AORTIC ANEURYSM; [facility], Follow up for thoracic aortic aneurysm. TECHNIQUE: Multiple axial images were obtained through the chest. Sagittal and coronal reformats were created for review. MIP was performed on a separate workstation. Contrast used:100ml mL of Isovue [address] DLP: 495.5 mGycm, Automated exposure control for dose reduction was used. FINDINGS: Heart borderline in size without pericardial effusion. Prominent LAD coronary calcifications are pres ent. Moderate aortic valve calcifications. Ectatic aortic root at 3.8 cm versus 3.6 cm, previously. Aneurysm ascending aorta 5.0 cm versus 4.8 cm, previously. Conventional arch vessel branching anatomy. Ectatic upper descending thoracic aorta 3.1 cm, unchanged. Borderline caliber main right and left pulmonary arteries up to 2.5 cm may reflect underlying pulmona ry hypertension. Scattered nonenlarged mediastinal lymph nodes are present. No thoracic lymph adenopathy by CT size cr iteria. Mild hazy dependent atelectasis in the lower lungs along with some strandy atelectasis lower lobes. M ild emphysematous change. No consolidation or pleural effusion. Visualized upper abdomen shows no gross abnormality. DISH lower thoracic spine. Degenerative change visualized lower cervical spine. Degenerative grade 1 anterolisthesis C7-T1. IMPRESSION: 1. Moderate aortic valve calcifications with aneurysmal ascending aorta measured at 5.0 cm versus 4.8 cm, previously. 2. Prominent LAD coronary artery calcifications. 3. COPD with mild emphysema and possible underlying pulmonary arterial hypertension. [facility], , 09/03/2024 10:10 AM
== END | disposition home or self-care (01) ==
LOC: RADCTMAIN 07:17
PROVIDERS: ATTEND Surgery
DX: I71.20 Thoracic aortic aneurysm, without rupture, unspecified (principal); I25.10 Atherosclerotic heart disease of native coronary artery without angina pectoris; J44.9 Chronic obstructive pulmonary disease, unspecified; J43.9 Emphysema, unspecified
CPT/HCPCS: 71260; Q9967

== ENCOUNTER → 2024-10-03 | Outpatient (CLI) | payer BC ==
--- NOTE | 2024-10-03 19:27 | CA ---
Transthoracic Echo Report Name: Chico Friedman Age: 64 Gender: M : 1960 Exam Date: 10/03/2024 08:30 Exam Location: [facility] Ht (in): 72 Wt (lb): 220 Ordering Physician: Everardo Burrell MD Attending/Referring Phys: Everardo Burrell MD Research Assistant Professor Mally Quach, RD Procedure CPT: Indications: I71.20 Cardiac Hx: Technical Quality: Good Contrast 1: Total Dose (mL): Contrast 2: Total Dose (mL): MEASUREMENTS (Male / Female) Normal Values 2D ECHO LV Diastolic Diameter PLAX 5.2 cm 4.2 - 5.9 / 3.9 - 5.3 cm LV Systolic Diameter PLAX 3.4 cm IVS Diastolic Thickness 1.1 cm 0.6 - 1.0 / 0.6 - 0.9 cm LVPW Diastolic Thickness 1.1 cm 0.6 - 1.0 / 0.6 - 0.9 cm LV Relative Wall Thickness 0.4 RV Internal Dim ED PLAX 3.5 cm LVOT Diameter 1.9 cm LA Systolic Diameter LX 4.5 cm 3.0 - 4.0 / 2.7 - 3.8 cm LV Diastolic Volume MOD 4C 174.2 cm??? LV Systolic Volume MOD 4C 77.3 cm??? LV Ejection Fraction MOD 4C 55.6 % LV Cardiac Index MOD 4C 2471.5 cm???/min???m??? LV Diastolic Length 4C 9.1 cm LV Systolic Length 4C 7.9 cm LV Diastolic Volume MOD 2C 196.3 cm??? LV Systolic Volume MOD 2C 95.3 cm??? LV Ejection Fraction MOD 2C 51.5 % LV Cardiac Index MOD 2C 2575.7 cm???/min???m??? LV Diastolic Length 2C 9.2 cm LV Systolic Length 2C 7.9 cm LA Volume 61.4 cm??? 18 - 58 / 22 - 52 cm??? LA Volume Index 27.0 cm???/m??? 16 - 28 cm???/m??? DOPPLER AI Peak Velocity 482.3 cm/s AI Peak Gradient 93.1 mmHg AI Pressure Half Time 478.5 ms MV Area PHT 2.6 cm??? Mitral E Point Velocity 51.8 cm/s Mitral A Point Velocity 46.2 cm/s Mitral E to A Ratio 1.1 MV Deceleration Time 294.6 ms TR Peak Velocity 233.1 cm/s TR Peak Gradient 21.7 mmHg FINDINGS Left Ventricle Left ventricular ejection fraction is estimated at 50-55 %. Mild concentric left ventricular hypertrophy. No obvious regional wall motion abnormalities. Left ventricular cavity size normal. Right Ventricle Right ventricular dilatation. Unable to estimate the right ventricular systolic pressure. Right Atrium Normal right atrial size. Left Atrium Mildly increased left atrial diameter. Mildly increased left atrial volume. Mitral Valve Structurally normal mitral valve. No mitral stenosis. Mild mitral regurgitation. Aortic Valve Calcified aortic valve with possible bicuspid aortic valve. No aortic stenosis. Moderate aortic regurgitation. Tricuspid Valve Structurally normal tricuspid valve. No tricuspid stenosis. Trace to mild tricuspid regurgitation. Pulmonic Valve Structurally normal pulmonic valve. No pulmonic stenosis. No pulmonic regurgitation. Pericardium No pericardial effusion. Aorta Aortic annulus normal. Moderately dilated proximal ascending aorta (tube), 4.5 cm CONCLUSIONS 1. Left ventricular systolic function borderline normal 2. Calcified aortic valve, probable bicuspid with moderate aortic regurgitation 3. Mild mitral regurgitation 4. Dilated ascending aorta Previewed by: Dr. Narendra Vallejo MD (Electronically Signed) Final Date: 03 October 2024 19:26
== END | disposition home or self-care (01) ==
LOC: RADECHMAIN 08:09
PROVIDERS: ATTEND Surgery
DX: I08.0 Rheumatic disorders of both mitral and aortic valves (principal); I71.20 Thoracic aortic aneurysm, without rupture, unspecified
CPT/HCPCS: 93306